=== PATIENT | female | born 1945 | race Caucasian/White ===

== ENCOUNTER → 2016-10-01 | Outpatient (CLI) | payer MEDICARE, OTHER ==
[~2016-10-01] MED LIST: INSU100I26 SQ; INSU100V SC; LEVEMIR (P10 UNIT/0. SQ; LIRA0.6P2 SQ; METO25TA60 PO; PRAV80TA PO; PRV20T PO; WARF6TAB3 PO
== END ==
LOC: RT 09:14
PROVIDERS: ATTEND Internal Medicine
DX: I48.91 Unspecified atrial fibrillation (principal)
CPT/HCPCS: 93005